=== PATIENT | male | born 1965 | race Two or more races ===

== ENCOUNTER 2020-06-16 05:43 | Inpatient (IN) | payer MEDICARE, MEDICAID ==
[~2020-06-16] VITALS: Ht 167.6 cm; Wt 69.9 kg
[2020-06-16] VITALS (14 sets, daily range): BP systolic 112–126; BP diastolic 68–85
[~2020-06-16 05:43] MED LIST: BACTRIM 400-801 EACH ORAL; BIKTARVY 50-201 EACH PO; MULTIVITAMINS1 EAC2 ORAL; OMEGA 3 500 SO1 EACH PO
[2020-06-16] MEDS ORDERED: ProvayBlue 5mg/ml 10ml amp INJ SCH (07:15)
[2020-06-16] MEDS ORDERED: Bupivacaine 0.5% Inj 30 ml vial INJ ONE (07:19)
[2020-06-16] MEDS ORDERED: NS Irrig 1000ml IRRIG ONE ×2 (07:21→08:06)
--- NOTE | 2020-06-16 07:26 | Anethesia Preoperative Eval ---
Anesthesia Pre-op PMH/ROS General Date of Evaluation: Jun 16, 2020 Time of Evaluation: 07:31 Anesthesiologist: Shahida ASA Score: ASA 3 Mallampati Score Class I : Soft palate, uvula, fauces, pillars visible Class II: Soft palate, uvula, fauces visible Class III: Soft palate, base of uvula visible Class IV: Only hard plate visible Mallampati Classification: Class II Surgeon: Aida Diagnosis: Prostate CA Surgical Procedure: Laparoscopic Radical Retropubic Prostatectomy Anesthesia History: none Family History: no anesthesia problems Allergies: Coded Allergies: No Known Allergies (Unverified , 06/16/20) Medications: see eMAR Patient NPO?: Yes Past Medical History Cardiovascular: Reports: HTN, other - HL Hematology/Immune: Reports: other - HIV Anesthesia Pre-op Phys. Exam Physician Exam Last Vital Signs Date Time Temp Pulse Resp B/P (MAP) Pulse Ox O2 Delivery O2 Flow Rate FiO2 06/16/20 06:28 Room Air 06/16/20 06:25 97.1 68 18 119/77 (91) 100 Constitutional: NAD Neurologic: CN 2-12 intact Cardiovascular: RRR Respiratory: CTA Gastrointestinal: S/NT/ND Airway Exam Mallampati Score: Class II MO: full ROM: full Teeth: missing, intact Anesthesia Pre-op A/P Risk Assessment & Plan Assessment: ASA 3 Plan: GA, SED, GlideScope Status Change Before Surgery: No Pre-Antibiotics Dru Gram Ancef IV Given Within 1 Hr of Incision: Yes Time Given: 08:01 Inderjit Pinedo MD Jun 16, 2020 07:26
--- NOTE | 2020-06-16 07:27 | Immediate Post-Op Evaluation ---
Immediate Post-Op Evalulation Immediate Post-Op Evalulation Procedure: Laparoscopic Radical Retropubic Prostatectomy Date of Evaluation: Jun 16, 2020 Time of Evaluation: 10:20 IV Fluids: 2500 LR Blood Products: 0 Estimated Blood Loss: 100 Urinary Output: 200 Blood Pressure Systolic: 114 Blood Pressure Diastolic: 71 Pulse Rate: 76 Respiratory Rate: 16 O2 Sat by Pulse Oximetry: 100 Temperature (Fahrenheit): 98 Pain Score (1-10): 2 Nausea: No Vomiting: No Complications 0 Patient Status: awake, reacts, patent, none Hydration Status: adequate Dru Gram Ancef IV Given Within 1 Hr of Incision: Yes Time Given: 08:01 Inderjit Pinedo MD Jun 16, 2020 07:27
[2020-06-16] MEDS ORDERED: Midazolam 2mg/2ml Inj IVP PRN (07:30)
[2020-06-16] MEDS ORDERED: Lidocaine 1% MPF 10mg/ml 5ml ONE (07:30)
[2020-06-16] MEDS ORDERED: DiphenhydrAMINE 50mg/ml Inj IVP PRN (07:30)
[2020-06-16] MEDS ORDERED: HYDROcodone/Acetamin 7.5/325 tab ORAL PRN (07:30)
[2020-06-16] MEDS ORDERED: LR 1000ml 1,000 ML IVLG SCH (07:30)
[2020-06-16] MEDS ORDERED: Hydromorphone 0.5mg/0.5ml inj IVP PRN (07:30)
[2020-06-16] MEDS ORDERED: fentaNYL 100 mcg/2 mL IV PRN (07:30)
[2020-06-16] MEDS ORDERED: Atropine Sulfate 0.4mg/ml inj IVP PRN (07:30)
[2020-06-16] MEDS ORDERED: Ketorolac 30mg Inj IV PRN ×3 (07:30→10:15)
[2020-06-16] MEDS ORDERED: NS Irrig 1000ml ONE (07:30)
[2020-06-16] MEDS ORDERED: Sodium Chloride 10ml vial INJ ONE (07:30)
[2020-06-16] MEDS ORDERED: Meperidine 25mg/1ml Inj (FOR RIGORS ONLY) IV PRN (07:30)
[2020-06-16] MEDS ORDERED: Sterile Water Irrig 1000ml IRRIG ONE (07:30)
[2020-06-16] MEDS ORDERED: Labetalol 5mg/ml 20ml vial IV PRN (07:30)
[2020-06-16] MEDS ORDERED: LORazepam Inj 2mg/ml 1ml IV PRN (07:30)
[2020-06-16] MEDS ORDERED: Metoclopramide 10mg/2ml Inj IVP PRN (07:30)
[2020-06-16] MEDS ORDERED: HYDROcodone/Acetamin 5/325 tab ORAL PRN (07:30)
[2020-06-16] MEDS ORDERED: oxyCODONE HCL/Acetaminophen 5/325mg ORAL PRN (07:30)
[2020-06-16] MEDS ORDERED: LR 1000ml ONE (07:30)
[2020-06-16] MEDS ORDERED: fentaNYL 100 mcg/2 mL IV ONE (07:33)
--- NOTE | 2020-06-16 07:48 | Pre-Procedure Note/Attestation ---
Pre-Procedure Note/Attestation Complete Prior to Procedure Planned Procedure: not applicable Procedure Narrative: Laparoscopic radical prostatectomy Indications for Procedure Pre-Operative Diagnosis: prostate cancer Attestation I attest that I discussed the nature of the procedure; its benefits; risks and complications; and alternatives (and the risks and benefits of such alternatives), prior to the procedure, with the patient (or the patient's legal financial services representative). I attest that, if there was a reasonable possibility of needing a blood transfusion, the patient (or the patient's legal financial services representative) was given the [facility] standardized written summary, pursuant to the [place]ain [place]am Blood Safety Act ([place] Health and Safety Code # 1645, as amended). I attest that I re-evaluated the patient just prior to the surgery and that there has been no change in the patient's H&P, except as documented below: Last Parra MD Jun 16, 2020 07:48
[2020-06-16] MEDS ORDERED: Acetaminophen (Non formulary) 100 ML IV ONE (08:15)
[2020-06-16] MEDS ORDERED: ceFAZolin sod 1 GM in NS 55 ML IVPB ONE (09:00)
[2020-06-16] MEDS ORDERED: Ketorolac 30mg Inj ONE (09:42)
--- NOTE | 2020-06-16 10:04 | Brief Operative Note ---
Immediate Post Operative Note Operative Note Pre-op Diagnosis: prostate cancer Procedure: Laparoscopic radical prostatectomy Post-op Diagnosis: same Post-op Diagnosis: same as pre-op Surgeon: Prince Parra Anesthesia: general Specimen: yes Complications: none Condition: stable Fluids: 500 Estimated Blood Loss: minimal Implant(s) used?: No Last Parra MD Jun 16, 2020 10:04
[2020-06-16 11:27] LABS: HEMATOCRIT 33.2 % (42.0-52.0); HEMOGLOBIN 11.2 G/DL (14.2-18.0); MEAN CORPUSCULAR VOLUME 98 FL (80-99); PLATELET COUNT 230 K/UL (150-450); RED CELL DISTRIBUTION WIDTH 12.9 % (11.6-14.8); WHITE BLOOD COUNT 9.5 K/UL (4.8-10.8)
[2020-06-16 11:32] LABS: ANION GAP 8 mmol/L (5-15); BLOOD UREA NITROGEN 15 mg/dL (7-18); CALCIUM 8.4 MG/DL (8.5-10.1); CARBON DIOXIDE 24 MMOL/L (21-32); CHLORIDE 107 MMOL/L (98-107); CREATININE 1.1 MG/DL (0.55-1.30); POTASSIUM 4.3 MMOL/L (3.5-5.1); SODIUM 139 MMOL/L (136-145)
--- NOTE | 2020-06-16 11:40 | NUR ---
NURSE NOTES: Received pt from PACU and report from HAYDE Rueda. Pt awake but drowsy, alert and oriented. Pt on NC 2L, breathing even and unlabored. Noted surgical wound dressingx5 clean, dry and intact. IV site intact and patent. Noted Whittaker 20Fr draining yellow + red urine. All belongings were accounted for. Vitals stable. Bed in low position, locked. Call light within reach. Will continue to monitor.
--- NOTE | 2020-06-16 11:44 | Operative Note - Dictated ---
DATE OF OPERATION: 06/16/2020 PREOPERATIVE DIAGNOSIS: Prostate cancer. POSTOPERATIVE DIAGNOSIS: Prostate cancer. OPERATION: Laparoscopic radical retropubic prostatectomy. RN WOMENS HEALTH: Last Parra MD ANESTHESIA: General. FINDINGS: Prostate cancer. INDICATIONS FOR SURGERY: The patient was diagnosed with prostate cancer. Treatment options were explained to him in great length including all potential complications, he signed a consent. DESCRIPTION OF PROCEDURE: The patient was brought to the operating room, placed in the supine position, prepped and draped in standard fashion. Under general anesthesia, Veress needle was placed. Pneumoperitoneum was created to 15 mmHg. A 12 mm trocar was placed. Laparoscopy was performed. No adhesions. Additional three 5s and one 12 mm trocar was placed. Dissection started behind the bladder mobilizing seminal vesicles and vas deferens on both sides. The vas was clipped and severed. Dissection then carried anteriorly the bladder from the pubis exposing the prostate. The endopelvic fascia was opened with Harmonic Scalpel on both sides. The dorsal venous complex was transected with Endo-VERONICA. Prostate was dissected on both sides. Bladder neck sparing technique was used to separate the bladder from the prostate. Bladder neck was carefully preserved. Neurovascular bundle on the right side was saved and the prostate was then removed saving quite a nice distal urethra. Anastomosis was created between the urethra and the bladder over 20-Kinyarwanda Whittaker catheter with running 2-0 Monocryl suture. Watertight irrigation of the bladder showed no leaks. The prostate was removed intact. Estimated blood loss was approximately 50 mL. Surgicel and FloSeal was placed on the neurovascular bundles. Pneumoperitoneum was deflated. Wound was closed in multiple layers. The peritoneum was closed with a running 2-0 Vicryl suture and abida for the skin. The patient tolerated procedure well without complication. Last Parra M.D. DR: Bishop JOB#: [id number] CC:
[2020-06-16] MEDS: D5 1/2NS w/KCl 20mEq 1,000 ML IV SCH (15:43)
[2020-06-16] MEDS: ceFAZolin 2gm/50ml Premix 50 ML IV SCH ×2 (15:43→23:09)
[2020-06-16] MEDS: HYDROmorphone 1mg/ml Carpuject IVP PRN (16:07)
--- NOTE | 2020-06-16 17:49 | Operative Note - PDOC ---
Operative Note Operative Note Date of Operation/Procedure: Jun 16, 2020 Pre-op Diagnosis: Intra- abdominal adhesions Procedure: Laparoscopic Lysis of Adhesions Post-op Diagnosis: same Post-op Diagnosis: same as pre-op Operative Findings: other - Massive dense adhesions between the cecum, small bowel and right colon to the anterior abdominal wall precluding the safe placement of the trocars. Surgeon: Chandana Craig Records Management Associate: Last Parra Anesthesia: general Complications: none Condition: stable Fluids: 500 Estimated Blood Loss: minimal Drains: none Implant(s) used?: No Indications for Procedure The patient is a male with prostate cancer. During the laparoscopic prostatectomy, the intra-abdominal adhesions between the cecum and anterior abdominal wall were found that precluded the placement of the right-sided trocars and I was requested by surgical urologist, Dr. Last Parra, to perform lysis of adhesions Description of Procedure The patient was identified, brought to the operating room, and positioned supine. General endotracheal anesthesia was induced. The abdomen was prepped and draped in the usual sterile fashion. Dr. Parra infused pneumoperitoneum by placing a Veress needle through the infraumbilical incision. He also put the first trocar in the midline and then he used the 0-degree scope to visualize the contents of the intra-abdominal cavity. At that time, he found the above-mentioned findings. He placed two additional 5-mm trocars in the left abdomen and, at that moment, I scrubbed in. Using sharp dissection, I grasped the bowel and divided the adhesions between the cecum, small bowel, and anterior abdominal wall. It required partial mobilization of the right colon. By completion of this maneuver, free space for placement into the right-sided trocars was gained. Two trocars were placed by me in the right abdomen, one 5-mm trocar just medial to the anterior superior iliac spine and 12-mm trocar in the midclavicular line below the umbilicus. The rest of the procedure was performed by Dr. Last Parra and he will dictate his report separately. Chandana Craig MD Jun 16, 2020 17:49
[2020-06-16] MEDS: Docusate 100mg cap ORAL SCH (18:00)
--- NOTE | 2020-06-16 18:00 | NUR ---
NURSE NOTES: Left massage to Dr. Parra regarding home med recon. awaiting for response
--- NOTE | 2020-06-16 19:00 | NUR ---
NURSE NOTES: received pt and report from HAYDE Emery. pt alert and oriented x 4 with no acute ss of distress and no co pain at the moment. johnson draining sanguineous drainage. lap sites dressing clean dry and intact. IV clean dry and intact and running fluids as orderes. plan of care discussed.
--- NOTE | 2020-06-16 19:33 | NUR ---
NURSE HAND-OFF: Important Events on Shift:[Post op admission, pain control, home med brought] Patient Status: [stable] Diet: [reg] Pending Orders: [] Pending Results/Labs:[] Pending MD notification:[] Latest Vital Signs: Temperature 98.2 , Pulse 81 , B/P 126 /70 , Respiratory Rate 18 , O2 SAT 99 , Nasal Cannula, O2 Flow Rate 2.0 . Vital Sign Comment: [stable] Latest Liz[place]aga Fall Score: 35 Fall Risk: Medium Risk Safety Measures: Call light Within Reach, Bed Alarm Zone 1, Side Rails Side Rails x2, Bed position Low and Locked. Fall Precautions: Report given to [Benton,RN].
--- NOTE | 2020-06-16 20:00 | NUR ---
NURSE NOTES: vital signs are stable, pt still with no acute s/s of distress, no co of pain. Dr. Parra called to change Toradol to scheduled dose IV, also to keep patient NPO tonight and advance to clear liquid in the morning. He also confirmed to continue pt home med biktarvy. home meds sent to pharmacy with receipt number [id number].
[2020-06-16] MEDS: Ketorolac 30mg Inj IV SCH (23:10)
[2020-06-17] VITALS (7 sets, daily range): BP systolic 110–136; BP diastolic 66–80
[2020-06-17] MEDS ORDERED: Ketorolac 30mg Inj IV SCH
--- NOTE | 2020-06-17 00:08 | NUR ---
NURSE NOTES: pt vital signs stable at this time. pt co 8/10 pain. pain medication given. pt in no acute distress.
[2020-06-17] MEDS: HYDROmorphone 1mg/ml Carpuject IVP PRN ×3 (00:55→15:18)
--- NOTE | 2020-06-17 01:00 | NUR ---
NURSE NOTES: dressing change on middle lap site, pt tolerated well, no sign of infection no order, non tender, gauze with serosanguineous drainage. pt complained of bloating, bowel sounds heard in all quadrants, pt ambulated with assist to bathroom and had a bowel movement.
[2020-06-17] MEDS: D5 1/2NS w/KCl 20mEq 1,000 ML IV SCH ×2 (01:49→12:48)
--- NOTE | 2020-06-17 03:51 | NUR ---
NURSE NOTES: vital signs stable, no co pain after given dilaudid, pt abd discomfort resolved after ambulating to bathroom and having a bowel movement which he states was mostly gas. no acute distress observed.
--- NOTE | 2020-06-17 04:45 | NUR ---
NURSE NOTES: Incentive spirometer arrived brought by RT. bedside teaching done. pt comfortably inhaling 1000 to 1500 with good breath hold.
[2020-06-17] MEDS: Ketorolac 30mg Inj IV SCH ×4 (05:29→23:26)
--- NOTE | 2020-06-17 05:42 | NUR ---
NURSE NOTES: drainage from johnson this am vs start of shift is clearer but still dark red. starting to clear out but hematuria still present.
[2020-06-17 06:35] LABS: BASOPHILS % (AUTO) 0.5 % (0.0-2.0); HEMATOCRIT 32.6 % (42.0-52.0); HEMOGLOBIN 11.2 G/DL (14.2-18.0); LYMPHOCYTES % (AUTO) 11.7 % (20.0-45.0); MEAN CORPUSCULAR VOLUME 97 FL (80-99); MONOCYTES % (AUTO) 6.8 % (1.0-10.0); NEUTROPHILS % (AUTO) 80.9 % (45.0-75.0); PLATELET COUNT 250 K/UL (150-450); RED BLOOD COUNT 3.35 M/UL (4.70-6.10); RED CELL DISTRIBUTION WIDTH 12.7 % (11.6-14.8); WHITE BLOOD COUNT 9.2 K/UL (4.8-10.8)
[2020-06-17 06:53] LABS: ANION GAP 8 mmol/L (5-15); BLOOD UREA NITROGEN 13 mg/dL (7-18); CALCIUM 8.8 MG/DL (8.5-10.1); CARBON DIOXIDE 25 MMOL/L (21-32); CHLORIDE 107 MMOL/L (98-107); CREATININE 0.9 MG/DL (0.55-1.30); POTASSIUM 4.7 MMOL/L (3.5-5.1); SODIUM 140 MMOL/L (136-145)
--- NOTE | 2020-06-17 07:36 | NUR ---
NURSE NOTES: Report received from Irving RN, rounds made. Patient AOx4, calm. Respirations even/unlabored on RA. Resting in semi-fowlers position in bed. IS at bedside, inhales 1200 ml without difficulty. Surgical dressings x5 to abdomen intact, mid dressing moderately saturated with serosanguineous drainage, will change later. Bilateral SCDs on. Denies need for pain medication at this time. FC draining pink/clear urine. IV D51/2 NS +20 KCL at 100 ml/hr to LW, site asymptomatic. Encouraged PO fluid intake. Call light in reach, bed in lowest position, will continue to monitor.
--- NOTE | 2020-06-17 07:47 | NUR ---
NURSE HAND-OFF: Important Events on Shift:pain management, post op assessments Patient Status: stable Diet: clear liquid Pending Orders: NA Pending Results/Labs:NA Pending MD notification:NA Latest Vital Signs: Temperature 97.7 , Pulse 76 , B/P 123 /73 , Respiratory Rate 15 , O2 SAT 100 , Nasal Cannula, O2 Flow Rate 2.0 . Vital Sign Comment: stable through the shift Latest Lizarraga Fall Score: 35 Fall Risk: Medium Risk Safety Measures: Call light Within Reach, Bed Alarm Zone 1, Side Rails Side Rails x2, Bed position Low and Locked. Fall Precautions: Patient Fall Education Report given to HAYDE Padilla.
[2020-06-17] MEDS: Patient's Own Med - Biktarvy ORAL SCH (09:46)
[2020-06-17] MEDS: Docusate 100mg cap ORAL SCH ×2 (09:46→18:13)
--- NOTE | 2020-06-17 11:25 | NUR ---
PT EVALUATION NOTE Patient seen for initial evaluation and treatment initiated. Patient presents with impaired functional mobility s/p laparoscopic radical retropubic prostatectomy. Patient able to perform bed mobility with supervision and transfer with SBA. Patient able to ambulate 150 ft with SBA/CGA, slightly unsteady during ambulation however no loss of balance. Patient c/o min dizziness in sitting, standing and during ambulation. Patient able to ascend/descend 3 stairs holding one rail with SBA/CGA. Patient will benefit from skilled inpatient PT intervention to increase postural stability for improved level of functional mobility and for stair training. Anticipate discharge home once medically cleared by MD. No DME needs identified at this time. Addendum: 06/17/20 at 1315 by LARRY ROSARIO PT Amended: Links added.
--- NOTE | 2020-06-17 12:19 | 48 Hour Post Anesthesia Eval ---
Post Anesthesia Evaluation Procedure: Laparoscopic Radical Retropubic Prostatectomy Date of Evaluation: Jun 17, 2020 Time of Evaluation: 12:18 Blood Pressure Systolic: 121 0: 79 Pulse Rate: 69 Respiratory Rate: 16 Temperature (Fahrenheit): 97.4 O2 Sat by Pulse Oximetry: 100 Airway: patent Nausea: No Vomiting: No Pain Intensity: 2 Hydration Status: adequate Cardiopulmonary Status: Stable Mental Status/LOC: patient returned to baseline Follow-up Care/Observations: 0 Post-Anesthesia Complications: 0 Follow-up care needed: N/A Inderjit Pinedo MD Jun 17, 2020 12:19
--- NOTE | 2020-06-17 12:55 | Consultation ---
History of Present Illness General Date patient seen: Jun 17, 2020 Present Illness HPI 54-year-old male status post lap radical posterior prostatectomy with lysis adhesions postoperatively abdominal discomfort needing monitoring as far as postoperative care plan as well. Surgery called to evaluate and assist with postoperative care patient seen patient by chart reviewed Allergies: Coded Allergies: No Known Allergies (Unverified , 06/16/20) COVID-19 Screening Contact w/high risk pt: No Experienced COVID-19 symptoms?: No Medication History Scheduled Atorvastatin Calcium* (Atorvastatin Calcium*), 20 MG ORAL DAILY, (Reported) Bictegrav/Emtricit/Tenofov Ala (Biktarvy 50-200-25 mg Tablet), 1 EACH PO DAILY, (Reported) Finasteride* (Proscar*), 1.25 MG ORAL DAILY, (Reported) Multivitamins* (Multivitamins*), 1 TAB ORAL DAILY, (Reported) [place]-3/Dha/Epa/Fish Oil ([place] 3 500 Softgel), 1 EACH PO TID, (Reported) Triamterene/Hydrochlorothiazide* (Dyazide 37.5-25 Mg Tab*), 1 TAB ORAL DAILY, (Reported) Valacyclovir Hcl* (Valtrex*), 500 MG ORAL TWICE A DAY, (Reported) Discontinued Medications Sulfamethoxazole/Trimethoprim (Bactrim 400-80 Mg Tablet*), 1 TAB ORAL TWICE A DAY, (Reported) Discontinued Reason: Therapy completed Patient History History Provided By: Patient, Medical Record, PMD Healthcare decision maker N Resuscitation status Advanced Directive on File Past Medical/Surgical History Past Medical/Surgical History: (1) Prostate CA Review of Systems Review of Symptoms General ROS: no weight loss or fever Psychological ROS: no depression or mood changes, no memory loss Ophthalmic ROS: no visual changes or eye irritation ENT ROS: no nasal congestion, hearing loss, dizziness Allergy and Immunology ROS: no allergic symptoms or urticaria Hematological and Lymphatic ROS: no swollen glands, unusual bleeding or bruising Endocrine ROS: no polyuria, polydipsia, weight changes, temperature intolerance Respiratory ROS: no cough, shortness of breath, or wheezing Cardiovascular ROS: no chest pain or dyspnea on exertion Gastrointestinal ROS: denies abdominal pain +discomfort, bright red blood in stool. Musculoskeletal ROS: no myalgias or arthralgias Neurological ROS: no TIA or stroke symptoms Dermatological ROS: no new or changing skin lesions, rashes or pruritis Physical Exam Physical Exam General appearance: alert, cooperative, no distress, appears stated age Head: Normocephalic, without obvious abnormality, atraumatic Eyes: conjunctivae/corneas clear. PERRL, EOM's intact. Fundi benign Throat: Lips, mucosa, and tongue normal. Teeth and gums normal Neck: supple, symmetrical, trachea midline, no adenopathy, thyroid: not enlarged, symmetric, no tenderness/mass/nodules, no carotid bruit and no JVD Lungs: clear to auscultation bilaterally Heart: regular rate and rhythm, S1, S2 normal, no murmur, click, rub or gallop Abdomen: soft, non-tender but discomfort. Bowel sounds normal. No masses, no organomegaly Extremities: extremities normal, atraumatic, no cyanosis or edema Pulses: 2+ and symmetric Skin: Skin c/d/i Neurologic: Grossly normal Last 24 Hour Vital Signs Date Time Temp Pulse Resp B/P (MAP) Pulse Ox O2 Delivery O2 Flow Rate FiO2 06/17/20 12:19 69 16 100 06/17/20 12:00 97.7 72 18 114/69 (84) 99 06/17/20 08:00 97.4 69 16 121/74 (90) 100 06/17/20 03:43 97.7 76 15 123/73 (90) 100 06/17/20 00:00 98.0 80 17 110/67 (81) 98 06/16/20 21:00 Nasal Cannula 2.0 06/16/20 20:00 98.1 81 16 117/68 (84) 98 06/16/20 16:37 98.2 06/16/20 16:00 98.7 81 18 126/70 (88) 99 Intake and Output 06/16/20 06/17/20 19:00 07:00 Intake Total 3350 ml 1100 ml Output Total 2100 ml 1700 ml Balance 1250 ml -600 ml Intake Oral 350 ml IV Total 3000 ml 1100 ml Output Urine Total 2000 ml 1700 ml Estimated Blood Loss 100 ml Laboratory Tests Test 06/17/20 05:15 White Blood Count 9.2 K/UL (4.8-10.8) Red Blood Count 3.35 M/UL (4.70-6.10) L Hemoglobin 11.2 G/DL (14.2-18.0) L Hematocrit 32.6 % (42.0-52.0) L Mean Corpuscular Volume 97 FL (80-99) Mean Corpuscular Hemoglobin 33.5 PG (27.0-31.0) H Mean Corpuscular Hemoglobin Concent 34.4 G/DL (32.0-36.0) Red Cell Distribution Width 12.7 % (11.6-14.8) Platelet Count 250 K/UL (150-450) Mean Platelet Volume 7.1 FL (6.5-10.1) Neutrophils (%) (Auto) 80.9 % (45.0-75.0) H Lymphocytes (%) (Auto) 11.7 % (20.0-45.0) L Monocytes (%) (Auto) 6.8 % (1.0-10.0) Eosinophils (%) (Auto) 0.0 % (0.0-3.0) Basophils (%) (Auto) 0.5 % (0.0-2.0) Sodium Level 140 MMOL/L (136-145) Potassium Level 4.7 MMOL/L (3.5-5.1) Chloride Level 107 MMOL/L (98-107) Carbon Dioxide Level 25 MMOL/L (21-32) Anion Gap 8 mmol/L (5-15) Blood Urea Nitrogen 13 mg/dL (7-18) Creatinine 0.9 MG/DL (0.55-1.30) Estimat Glomerular Filtration Rate > 60 mL/min (>60) Glucose Level 121 MG/DL (74-106) H Calcium Level 8.8 MG/DL (8.5-10.1) Height (Feet): 5 Height (Inches): 6.00 Weight (Pounds): 154 Medications Current Medications Medications (Trade) Dose Ordered Sig/Sukhwinder Route PRN Reason Start Time Stop Time Status Last Admin Dose Admin Acetaminophen (Tylenol) 650 mg Q6H PRN ORAL Mild Pain (Pain Scale 1-3) 06/16/20 10:15 07/16/20 10:14 Acetaminophen/ Hydrocodone Bitart ([place] 5/325) 1 tab Q4H PRN ORAL Moderate Pain (Pain Scale 4-6) 06/16/20 10:15 06/23/20 10:14 Dextrose/ Electrolytes 1,000 ml @ 100 mls/hr Q10H IV 06/16/20 16:00 07/16/20 15:59 06/17/20 12:48 Docusate Sodium (Colace) 100 mg TWICE A DAY ORAL 06/16/20 18:00 07/16/20 17:59 06/17/20 09:46 Hydromorphone HCl (Dilaudid) 1 mg Q3H PRN IVP pain score 4-6 06/16/20 10:15 06/23/20 10:14 06/17/20 09:48 Ketorolac Tromethamine (Toradol 30mg) 15 mg Q6HR IV 06/17/20 00:00 06/22/20 00:00 06/17/20 12:39 Ondansetron HCl (Zofran) 4 mg Q6H PRN IVP Nausea & Vomiting 06/16/20 10:15 07/16/20 10:14 Patient Own Medication (Patient's Own Med) 1 ea DAILY ORAL 06/17/20 09:00 07/17/20 08:59 06/17/20 09:46 Assessment/Plan Problem List: (1) Prostate CA Assessment & Plan: Laparoscopic radical retropubic prostatectomy. Recovering postoperatively Patient had lysis of adhesions required surgery called for postoperative management Abdominal exam is fairly benign at this time and appropriate for postop management okay for diet which patient is tolerating. Will obtain physical therapy to help patient ambulate out of bed. Labs noted pending path Meds reviewed Full discussion with patient regards to postoperative care planning we will follow with recommendations thank you ICD Codes: C61 - Malignant neoplasm of prostate SNOMED: [id number] Hosea Xavier Jun 17, 2020 12:55
--- NOTE | 2020-06-17 14:40 | NUR ---
CASE MANAGEMENT:REVIEW 54 YR OLD MALE HERE FOR ELECTIVE SURGERY SI: PROSTATE CANCER 97.7 72 18 114/69 99% ON 2L/NC H/H-11.2/33.2 IS: TO SURGERY: LAPAROSCOPIC RADICAL RETROPUBIC PROSTATECTOMY IVF@100/HR IV ANCEF Q8HRS IV TORADOL Q6HRS : MED/SURG STATUS 3 EAST DCP: FROM HOME
--- NOTE | 2020-06-17 15:30 | NUR ---
NURSE NOTES: Mid abdominal dressing changed, abida noted, intact, surrounding skin normal skin tone, intact, applied new 2x2 with tegederm.
[2020-06-17] MEDS ORDERED: PROSCAR5 MG ORAL (18:02)
[2020-06-17] MEDS ORDERED: VALACYCLOVIR500 MG ORAL (18:02)
[2020-06-17] MEDS ORDERED: TRIAMTERENE-HC1 EAC5 ORAL (18:02)
[2020-06-17] MEDS ORDERED: ATORVASTATIN CA20 MG ORAL (18:02)
--- NOTE | 2020-06-17 19:35 | NUR ---
NURSE NOTES: Received report & pt from HAYDE Padilla. Pt in bed, a&ox4, in room air. No s/s of acute distress & no c/o pain at this time. Whittaker cath intact & draining yellow urine output to gravity. IV site intact with IVF running as ordered. Plan of care discussed.
--- NOTE | 2020-06-17 19:35 | NUR ---
NURSE HAND-OFF: Important Events on Shift:PT evaluation (ambulated in halls/stairs/BRP, full weight bearing), Changed mid abdominal surgical site dressing, RX in chart (plans for dc 06/18?), medicated with Dilaudid 1mg x2, has Toradol scheduled every 6 hours Patient Status: stable Diet: regular Output: Whittaker 1450 ml Pending Orders: labs AM Pending Results/Labs:CBC CMP 06/18 Pending MD notification:none Latest Vital Signs: Temperature 97.9 , Pulse 71 , B/P 113 /66 , Respiratory Rate 16 , O2 SAT 97 , Nasal Cannula, O2 Flow Rate . Vital Sign Comment: none Latest Lizarraga Fall Score: 35 Fall Risk: Medium Risk Safety Measures: Call light Within Reach, Bed Alarm Zone 1, Side Rails Side Rails x2, Bed position Low and Locked. Fall Precautions: Yellow Socks Yellow Gown Door Sign Patient Fall Education Report given to Libby LOCK .
[2020-06-18 03:56] VITALS: BP 130/85
[2020-06-18] MEDS: Ketorolac 30mg Inj IV SCH ×4 (05:34→23:44)
--- NOTE | 2020-06-18 06:39 | NUR ---
NURSE HAND-OFF: Important Events on Shift:johnson output 2600ml (yellow color), scheduled pain med (Toradol) x2 Patient Status: stable Diet: Regular Pending Orders: Pending Results/Labs: Pending MD notification: Latest Vital Signs: Temperature 97.9 , Pulse 66 , B/P 130 /85 , Respiratory Rate 18 , O2 SAT 97 , Nasal Cannula, O2 Flow Rate . Vital Sign Comment: Latest Lizarraga Fall Score: 35 Fall Risk: Medium Risk Safety Measures: Call light Within Reach, Bed Alarm Zone 1, Side Rails Side Rails x2, Bed position Low and Locked. Fall Precautions: Patient Fall Education Report given to HAYDE Hanson.
[2020-06-18 06:41] LABS: BASOPHILS % (AUTO) 0.7 % (0.0-2.0); EOSINOPHILS % (AUTO) 0.8 % (0.0-3.0); HEMATOCRIT 31.5 % (42.0-52.0); HEMOGLOBIN 10.8 G/DL (14.2-18.0); LYMPHOCYTES % (AUTO) 22.6 % (20.0-45.0); MEAN CORPUSCULAR VOLUME 98 FL (80-99); MONOCYTES % (AUTO) 6.3 % (1.0-10.0); NEUTROPHILS % (AUTO) 69.6 % (45.0-75.0); PLATELET COUNT 225 K/UL (150-450); RED BLOOD COUNT 3.22 M/UL (4.70-6.10); RED CELL DISTRIBUTION WIDTH 12.7 % (11.6-14.8); WHITE BLOOD COUNT 6.9 K/UL (4.8-10.8)
[2020-06-18 06:53] LABS: ALANINE AMINOTRANSFERASE 109 U/L (12-78); ALBUMIN 2.8 G/DL (3.4-5.0); ALBUMIN/GLOBULIN RATIO 0.9 (1.0-2.7); ALKALINE PHOSPHATASE 61 U/L (46-116); ANION GAP 8 mmol/L (5-15); ASPARTATE AMINO TRANSFERASE 49 U/L (15-37); BILIRUBIN,TOTAL 0.6 MG/DL (0.2-1.0); BLOOD UREA NITROGEN 18 mg/dL (7-18); CALCIUM 8.4 MG/DL (8.5-10.1); CARBON DIOXIDE 26 MMOL/L (21-32); CHLORIDE 108 MMOL/L (98-107); CREATININE 0.8 MG/DL (0.55-1.30); POTASSIUM 4.1 MMOL/L (3.5-5.1); SODIUM 142 MMOL/L (136-145)
[2020-06-18 08:00] VITALS: BP 134/79
[2020-06-18] MEDS: Patient's Own Med - Biktarvy ORAL SCH (09:36)
[2020-06-18] MEDS: Docusate 100mg cap ORAL SCH ×2 (09:36→17:57)
--- NOTE | 2020-06-18 09:49 | NUR ---
NURSE NOTES: RECIEVED PT ASLEEP BUT AROUSABLE NO C/C OF PAIN @ THIS TIME .V/S STABLE .DISCUSSED POC.VERBALIZES UNDERSTANDING.CALL LIGHT WITHIN REACH.
--- NOTE | 2020-06-18 11:15 | NUR ---
CASE MANAGEMENT:REVIEW SI;POD #2 LYSIS OF ADHESIONS AND PROCTECTOMY 98.5 80 18 136/80 96% ON RA H/H- 10.8/31.5 AST+ 49 ALT+ 109 ALB- 2.8 IS;TORADOL IV Q6 MED SURG STATUS DCP;FROM HOME
--- NOTE | 2020-06-18 12:30 | NUR ---
HAND-OFF: Report given to LALO LOCK.
--- NOTE | 2020-06-18 12:30 | NUR ---
NURSE NOTES: Received report from Shannon RN. Patient is asleep, in no distress, RR even and unlabored, f/c draining to gravity.
[2020-06-18 16:00] VITALS: BP 126/85
[2020-06-18] MEDS: HYDROcodone/Acetamin 5/325 tab ORAL PRN (16:36)
--- NOTE | 2020-06-18 16:51 | Surgery Progress Note ---
Surgery Progress Note Subjective Symptoms: improved, tolerating diet, voiding well, passing flatus, pain decreased Objective Last 24 Hour Vital Signs Date Time Temp Pulse Resp B/P (MAP) Pulse Ox O2 Delivery O2 Flow Rate FiO2 06/18/20 09:00 Room Air 06/18/20 08:00 98.5 72 134/79 (97) 06/18/20 03:56 97.9 66 18 130/85 (100) 97 06/17/20 23:31 98.0 72 16 136/80 (98) 98 06/17/20 21:00 Room Air 06/17/20 20:00 98.3 80 18 123/69 (87) 96 I&O Intake and Output 06/17/20 06/18/20 19:00 07:00 Intake Total 2200 ml 800 ml Output Total 1450 ml 2600 ml Balance 750 ml -1800 ml Intake Oral 1200 ml 800 ml IV Total 1000 ml Output Urine Total 1450 ml 2600 ml Dressing: dry Wound: clean Cardiovascular: RSR Respiratory: clear Abdomen: soft, non-tender, present bowel sounds, non-distended Extremities: no edema, no tenderness, no cyanosis Laboratory Tests Test 06/18/20 05:20 White Blood Count 6.9 K/UL (4.8-10.8) Red Blood Count 3.22 M/UL (4.70-6.10) L Hemoglobin 10.8 G/DL (14.2-18.0) L Hematocrit 31.5 % (42.0-52.0) L Mean Corpuscular Volume 98 FL (80-99) Mean Corpuscular Hemoglobin 33.5 PG (27.0-31.0) H Mean Corpuscular Hemoglobin Concent 34.3 G/DL (32.0-36.0) Red Cell Distribution Width 12.7 % (11.6-14.8) Platelet Count 225 K/UL (150-450) Mean Platelet Volume 7.7 FL (6.5-10.1) Neutrophils (%) (Auto) 69.6 % (45.0-75.0) Lymphocytes (%) (Auto) 22.6 % (20.0-45.0) Monocytes (%) (Auto) 6.3 % (1.0-10.0) Eosinophils (%) (Auto) 0.8 % (0.0-3.0) Basophils (%) (Auto) 0.7 % (0.0-2.0) Sodium Level 142 MMOL/L (136-145) Potassium Level 4.1 MMOL/L (3.5-5.1) Chloride Level 108 MMOL/L (98-107) H Carbon Dioxide Level 26 MMOL/L (21-32) Anion Gap 8 mmol/L (5-15) Blood Urea Nitrogen 18 mg/dL (7-18) Creatinine 0.8 MG/DL (0.55-1.30) Estimat Glomerular Filtration Rate > 60 mL/min (>60) Glucose Level 92 MG/DL (74-106) Calcium Level 8.4 MG/DL (8.5-10.1) L Total Bilirubin 0.6 MG/DL (0.2-1.0) Aspartate Amino Transf (AST/SGOT) 49 U/L (15-37) H Alanine Aminotransferase (ALT/SGPT) 109 U/L (12-78) H Alkaline Phosphatase 61 U/L (46-116) Total Protein 5.8 G/DL (6.4-8.2) L Albumin 2.8 G/DL (3.4-5.0) L Globulin 3.0 g/dL Albumin/Globulin Ratio 0.9 (1.0-2.7) L Plan Problems: (1) Prostate CA Assessment & Plan: Laparoscopic radical retropubic prostatectomy. Recovering postoperatively Patient had lysis of adhesions required surgery called for postoperative management Abdominal exam is fairly benign at this time and appropriate for postop ma nagement okay for diet which patient is tolerating. Will obtain physical therapy to help patient ambulate out of bed. Labs noted pending path Meds reviewed Full discussion with patient regards to postoperative care planning we will follow with recommendations thank you walking well with pt comfortable d/c plan today leg bag meds reviewed rx written instructions given dc planning done Hosea Xavier Jun 18, 2020 16:51
--- NOTE | 2020-06-18 17:19 | NUR ---
NURSE NOTES: Patient stated he does not want to be discharged today and would be more comfortable being discharged tomorrow. Contacted Dr. Parra to relay patient's concerns to MD but have not received call back as of this time.
--- NOTE | 2020-06-18 17:53 | NUR ---
NURSE NOTES: No callback received from Dr. Parra, notified Dr. Xavier of patient's request to stay until tomorrow and MD stated "okay."
--- NOTE | 2020-06-18 18:13 | NUR ---
NURSE NOTES: Received call from Dr. Aida MD ordered to d/c patient tomorrow at 0900, order entered.
--- NOTE | 2020-06-18 19:20 | NUR ---
NURSE HAND-OFF: Important Events on Shift: D/c planning, pain management Patient Status: stable Diet: Reg Pending Orders: n/a Pending Results/Labs: n/a Pending MD notification: n/a Latest Vital Signs: Temperature 98.5 , Pulse 72 , B/P 126 /85 , Respiratory Rate 18 , O2 SAT 98 Vital Sign Comment: VS stable Latest [place] Fall Score: 35 Fall Risk: Medium Risk Safety Measures: Call light Within Reach, Bed Alarm Zone 1, Side Rails Side Rails x2, Bed position Low and Locked. Fall Precautions: Patient Fall Education Report given to Irving LOCK.
--- NOTE | 2020-06-18 19:32 | NUR ---
NURSE NOTES: received pt and report from HAYDE Velez. pt alert and oriented x 4 with no acute s/s of distress and no co pain at the moment. johnson cath noted and draining. IV site clean dry and intact and saline locked. dressings clean dry and intact. plan of care discussed.
[2020-06-18 20:00] VITALS: BP 141/86
--- NOTE | 2020-06-18 23:30 | NUR ---
NURSE NOTES: pt in no acute distress at this time. vitals are stable. co 4/10 pain, will administer pain medication.
[2020-06-19] VITALS: BP 126/83
[2020-06-19 04:00] VITALS: BP 130/84
--- NOTE | 2020-06-19 04:15 | NUR ---
NURSE NOTES: pt sleeping, vitals signs stable, no acute distress, no co pain at the moment. urine output is yellow, no odor.
[2020-06-19] MEDS: Ketorolac 30mg Inj IV SCH (05:26)
--- NOTE | 2020-06-19 07:18 | NUR ---
NURSE NOTES: Report received from Irving RN, rounds made. Patient resting in high fowlers position in bed. AOx4, calm. Respirations even/unlabored on RA. Abdominal (surgical site) pain 5/10, will medicate as ordered. Abdominal dressings x5, CDI. FC y/cl . Call light in reach, bed in lowest position, will continue to monitor.
--- NOTE | 2020-06-19 07:34 | NUR ---
NURSE HAND-OFF: Important Events on Shift:NA Patient Status: stable Diet: regular Pending Orders: NA Pending Results/Labs:NA Pending MD notification:NA Latest Vital Signs: Temperature 97.9 , Pulse 67 , B/P 130 /84 , Respiratory Rate 16 , O2 SAT 99 , Nasal Cannula, O2 Flow Rate . Vital Sign Comment: stable through the shift Latest Liz[place]aga Fall Score: 35 Fall Risk: Medium Risk Safety Measures: Call light Within Reach, Bed Alarm Zone 1, Side Rails Side Rails x2, Bed position Low and Locked. Fall Precautions: Patient Fall Education Report given to HAYDE Padilla.
[2020-06-19 08:00] VITALS: BP 143/92
[2020-06-19] MEDS: Patient's Own Med - Biktarvy ORAL SCH (08:52)
[2020-06-19] MEDS: Docusate 100mg cap ORAL SCH (08:52)
--- NOTE | 2020-06-19 10:05 | NUR ---
NURSE NOTES: Medicated with [place] 5 mg 1 tab at this time for abdominal surgical site pain 5/, plans for discharge home at 1100.
[2020-06-19] MEDS: HYDROcodone/Acetamin 5/325 tab ORAL PRN (10:06)
--- NOTE | 2020-06-19 11:30 | NUR ---
NURSE NOTES: Discharge instructions and prescription x1 reviewed, patient verbalized understanding. Demonstrated and performed switching from FC drainage bag to leg bag and how to open to empty and close each bag, patient verbalized understanding. Provided x3 additional leg bags, and one large drainage bag, basin, canister, gauze and paper tape. RW saline lock discontinued, no active bleeding. ID bracelet removed. All belongings, discharge instructions, prescription x1, supplies and home medication (picked up from pharmacy) given to patient. Yellow urine noted in leg bag prior to discharge. Sent down via WC in stable condition. 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
--- NOTE | 2020-06-19 11:52 | Surgery Progress Note ---
Surgery Progress Note Subjective Additional Comments did not want to go home last night states ready today no n/v/f/c tolerating diet Objective Last 24 Hour Vital Signs Date Time Temp Pulse Resp B/P (MAP) Pulse Ox O2 Delivery O2 Flow Rate FiO2 06/19/20 09:00 Room Air 06/19/20 08:00 98.2 68 18 143/92 (109) 100 06/19/20 04:00 97.9 67 16 130/84 (99) 99 06/19/20 00:00 98.6 72 15 126/83 (97) 98 06/18/20 21:00 Room Air 06/18/20 20:00 98.3 73 16 141/86 (104) 98 06/18/20 16:00 97.8 72 18 126/85 (99) 98 I&O Intake and Output 06/18/20 06/19/20 18:59 06:59 Intake Total 1000 ml 300 ml Output Total 3000 ml 1400 ml Balance -2000 ml -1100 ml Intake Oral 1000 ml 300 ml Output Urine Total 3000 ml 1400 ml Cardiovascular: RSR Respiratory: clear Abdomen: soft, non-tender, present bowel sounds, non-distended Extremities: no edema, no tenderness, no cyanosis Plan Problems: (1) Prostate CA Assessment & Plan: Laparoscopic radical retropubic prostatectomy. Recovering postoperatively Patient had lysis of adhesions required surgery called for postoperative management Abdominal exam is fairly benign at this time and appropriate for postop management okay for diet which patient is tolerating. Will obtain physical therapy to help patient ambulate out of bed. Labs noted pending path Meds reviewed Full discussion with patient regards to postoperative care planning we will follow with recommendations thank you walking well with pt comfortable d/c plan today leg bag meds reviewed rx written instructions given dc planning done Hosea Xavier Jun 19, 2020 11:52
[2020-06-20] MEDS ORDERED: LEVOFLOXACIN250 MG ORAL (00:31)
--- NOTE | 2020-06-21 11:45 | Discharge Summary ---
Discharge Summary Discharge Summary _ Date of admission: 06/16/2020 Date of discharge: 06/19/[address] Parra History of Present Illness and Brief Hospital Course Mr. Mtz is a 54-year-old male with past medical history of prostate cancer, who presented to the hospital for a scheduled laparoscopic radical retropubic pr ostatectomy. Treatment options were explained to him in great length including all potential complications. The patient was taken to the OR and laparoscopy was performed. During the prostatectomy procedure, massive dense adhesions between the cecum, small bowel and right colon to the anterior abdominal wall was noted precluding the safe placement of the trochars. His bowel was grasped and the adhesions between the cecum, small bowel, and anterior abdominal were divided. It required partial mobilization of the right colon. By completion of this maneuver, free space for placement into the right-sided trochars were gained. With the laparoscopic lysis of adhesions, the rest of the laparoscopic radical prostatectomy was able to be continued. Patient tolerated the procedure well without complication. After the procedure, patient was evaluated by surgery team and physical therapi st for postop management and assistance with ambulation. Patient began tolerating diet. Patient was able to ambulate with slightly unsteady gait, however without loss of balance. After observation, patient was medically stable for discharge. Patient was tolerating diet, voiding well, passing flatus, and pain subsided. He was discharged home on 06/19/2020. Consultants: Surgery Dr. Xavier Discharge Condition Stable Discharge Activity Advance as tolerated Discharge Diet Regular diet Final diagnoses History of prostate cancer Status post laparoscopic radical prostatectomy (06/16/2020) Status post laparoscopic lysis of adhesions I have been assigned to dictate discharge summary for this account. I was not involved in the patient's management Miles Damian Jun 21, 2020 11:45
== END 2020-06-19 11:30 | disposition home or self-care (01) | DRG 708 ==
LOC: SDSOVERFLO 05:43 → 3E 14:14
PROC: 0DN84ZZ Release Small Intestine, Percutaneous Endoscopic Approach (ICD-10-PCS; principal; 2020-06-16 07:30)
PROC: 0VT04ZZ Resection of Prostate, Percutaneous Endoscopic Approach (ICD-10-PCS; principal; 2020-06-16 07:30)
PROC: 0DNH4ZZ Release Cecum, Percutaneous Endoscopic Approach (ICD-10-PCS; principal; 2020-06-16 07:30)
DX: C61 Malignant neoplasm of prostate (principal); I10 Essential (primary) hypertension; G62.9 Polyneuropathy, unspecified; K66.0 Peritoneal adhesions (postprocedural) (postinfection)
CPT/HCPCS: 36415; 80048; 80053; 85007; 85025; 86850; 86900; 86901; 87081; 94003; 94150; J2405; U0002

== ENCOUNTER 2020-06-20 00:19 | Emergency (ER) | payer MEDICARE, MEDICAID ==
[~2020-06-20] VITALS: Ht 167.6 cm; Wt 68.0 kg
[~2020-06-20 00:19] MED LIST changes: +ATORVASTATIN CA20 MG ORAL; +PROSCAR5 MG ORAL; +TRIAMTERENE-HC1 EAC5 ORAL; +VALACYCLOVIR500 MG ORAL
[2020-06-20] MEDS ORDERED: LEVOFLOXACIN250 MG ORAL (00:31)
--- NOTE | 2020-06-20 00:42 | Emergency Room Report ---
History of Present Illness General Chief Complaint: General Complaint Source: Patient Present Illness HPI This is a 54-year-old male with a history of prostate cancer and had recent laparoscopic prostatectomy done by Dr. Parra on June 16. He was just discharged in the hospital. He presents with chief complaint of hematuria. He noticed reddish urine today. It cleared up. He complains of mild discomfort to the abdomen. No fever chills but no trauma. Pain is well controlled. He is currently taking Tylenol 3, finasteride, and Levaquin. 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 COVID-19 COVID-19 Testing Source: 06/15/20 Patient History Past Medical History: see triage record, old chart reviewed Past Surgical History: other Pertinent Family History: none Social History: Denies: smoking Immunizations: other Reviewed Nursing Documentation: PMH: Agreed; PSxH: Agreed Nursing Documentation-PMH Past Medical History: No History, Except For Hx Cardiac Problems: No - HIV positive Hx Cancer: Yes - prostate cancer Hx Gastrointestinal Problems: No Hx Neurological Problems: No Review of Systems Eye: Denies: eye pain, blurred vision ENT: Denies: ear pain, nose congestion, throat swelling Respiratory: Denies: cough, shortness of breath Cardiovascular: Denies: chest pain, palpitations Gastrointestinal: Denies: abdominal pain, diarrhea, nausea, vomiting Genitourinary: Reports: hematuria Musculoskeletal: Denies: back pain, joint pain Skin: Denies: rash Neurological: Denies: headache, numbness Endocrine: Denies: increased thirst, increased urine Hematologic/Lymphatic: Denies: easy bruising All Other Systems: negative except mentioned in HPI Physical Exam Vital Signs Date Time Temp Pulse Resp B/P (MAP) Pulse Ox O2 Delivery O2 Flow Rate FiO2 06/20/20 00:23 98.2 92 18 166/98 (120) 99 Room Air Vitals with high blood pressure Sp02 EP Interpretation: reviewed, normal General Appearance: well appearing, no apparent distress, alert Head: normocephalic, atraumatic Eyes: bilateral eye PERRL, bilateral eye EOMI ENT: hearing grossly normal, normal pharynx Neck: full range of motion, supple, no meningismus Respiratory: chest non-tender, lungs clear, normal breath sounds Cardiovascular #1: regular rate, rhythm, no murmur Gastrointestinal: normal bowel sounds, non tender, no mass, no organomegaly, no bruit, non-distended, other - Abdominal surgical sites clean without any redness. There is some mild skin irritation at the edge of the Tegaderm. Genitourinary: other - Whittaker intact. Dark discolored urine. No gross hematuria or clots. Musculoskeletal: back normal, normal range of motion, gait/station normal Psychiatric: mood/affect normal Medical Decision Making Diagnostic Impression: Primary Impression: Hematuria Qualified Codes: R31.9 - Hematuria, unspecified ER Course This patient presents with hematuria status post prostatectomy. Hematuria cleared up. He is currently on antibiotics already. Hemoglobin stable. No evidence of acute abdomen. Will discharge home. Last Vital Signs Date Time Temp Pulse Resp B/P (MAP) Pulse Ox O2 Delivery O2 Flow Rate FiO2 06/20/20 00:23 98.2 92 18 166/98 (120) 99 Room Air Status: improved Disposition: HOME, SELF-CARE Condition: Stable Referrals: NON PHYSICIAN (PCP) Additional Instructions: Increase fluids. Follow-up with your urologist as scheduled on the . Return if unable to urinate or having gross blood. Dion Vila MD Jun 20, 2020 00:42
--- NOTE | 2020-06-20 00:45 | NUR ---
ED Nurse Note: Recieved pt walk in from home, pt here with c/o gross hematura after surgery, pt has lapraproscopic prostate surgery on 06/16, states sent home with johnson that is in place now, pt suddennly noted large amount of bleeding after walking up stairs, pt has pain at 4/10 and states took oral pain meds prior to coming and starting to feel pain less, pt denies cp, sob, fevers, diarrhea or any other complaints or discomforts.
[2020-06-20 01:09] LABS: BASOPHILS % (AUTO) 1.1 % (0.0-2.0); EOSINOPHILS % (AUTO) 1.4 % (0.0-3.0); HEMATOCRIT 32.7 % (42.0-52.0); HEMOGLOBIN 11.6 G/DL (14.2-18.0); LYMPHOCYTES % (AUTO) 20.4 % (20.0-45.0); MEAN CORPUSCULAR VOLUME 95 FL (80-99); MONOCYTES % (AUTO) 6.6 % (1.0-10.0); NEUTROPHILS % (AUTO) 70.6 % (45.0-75.0); PLATELET COUNT 256 K/UL (150-450); RED BLOOD COUNT 3.43 M/UL (4.70-6.10); RED CELL DISTRIBUTION WIDTH 12.4 % (11.6-14.8)
[2020-06-20 01:19] LABS: ANION GAP 8 mmol/L (5-15); BLOOD UREA NITROGEN 26 mg/dL (7-18); CALCIUM 9.6 MG/DL (8.5-10.1); CARBON DIOXIDE 28 MMOL/L (21-32); CHLORIDE 106 MMOL/L (98-107); POTASSIUM 4.2 MMOL/L (3.5-5.1); SODIUM 142 MMOL/L (136-145)
[2020-06-20 02:00] VITALS: BP_SYST 144; BP_SYST 166; BP_DIAS 82; BP_DIAS 98
--- NOTE | 2020-06-20 02:00 | NUR ---
ER DISCHARGE NOTE: Patient is cleared to be discharged per ERMD, pt is aox4, on room air, with stable vital signs. pt was given dc and prescription instructions, pt was able to verbalize understanding, pt id band and iv site removed without complications. pt is able to ambulate with steady gait. pt took all belongings.
== END 2020-06-20 02:10 | disposition home or self-care (01) ==
LOC: EMR 00:36
DX: R31.9 Hematuria, unspecified (principal); Z85.46 Personal history of malignant neoplasm of prostate; Z90.79 Acquired absence of other genital organ(s)
CPT/HCPCS: 36415; 80048; 85025; 96360; 99284